=== PATIENT | male | born 1980 | race Caucasian/White ===

== ENCOUNTER 2020-09-29 19:26 | Emergency (ER) | payer MEDICAID ==
[2020-09-29] MEDS: Aspirin 81 MG Tab.Chew PO ONE (19:31)
[2020-09-29 19:48] LABS: PTT,PARTIAL THROMBOPLSTIN TIME 27.9 SEC (23.2-32.3)
[2020-09-29 19:52] LABS: CHLORIDE,CL 100 mEq/L (98-106); SODIUM,NA 138 mEq/L (136-145)
--- NOTE | 2020-09-29 20:26 | EDM.PDOC ---
ED HPI GENERAL MEDICAL PROBLEM - General Chief Complaint: Chest Pain Stated Complaint: L shoulder pain Time Seen by Provider: 09/29/20 19:40 Source of Information: Reports: Patient History Limitations: Reports: No Limitations - History of Present Illness INITIAL COMMENTS - FREE TEXT/NARRATIVE: Patient presents to ER with intermittent short episodes of pain in the left shoulder region. Patient states returned home from work today, had a warm bath and rode his exercise bike for 18 minutes at a fairly fast pace. Showered after and when he went to sit down, he noted his heart racing at around 176 bpm per his apple watch. He sat down to rest and again had issues with his heart rate in the 160s. He denies any short of breath with this. Does report a strange pulling sensation to his left shoulder that radiates to sternal area. Episodes only last 10-15 seconds. Relates then gets a warm sensation to his mouth, his mouth martinez and has a weird taste. Recently recovered from COVID, out of isolation on Sunday. Still having issues with diarrhea and loss os smell but is otherwise feeling good. This was the first day he had started exercising as of late. Does admit to also resuming his testosterone today. Also recently started Lexapro on Sunday for anxiety/depression Onset: Today, Sudden Duration: Minutes: Location: Reports: Chest Quality: Reports: Ache Severity: Moderate Improves with: Reports: Rest Associated Symptoms: Reports: Chest Pain, Diaphoresis, Nausea/Vomiting. Denies: Confusion, Cough, Fever/Chills, Headaches, Loss of Appetite, Malaise, Shortness of Breath Left Anterior Shoulder Pain Score (Numeric/FACES): 6 - Related Data Allergies Allergy/AdvReac Type Severity Reaction Status Date / Time No Known Allergies Allergy Verified 09/29/20 19:27 Home Meds: Home Meds Escitalopram [Lexapro] 10 mg PO DAILY 09/29/20 [History] Testosterone 120 mg PO DAILY 09/29/20 [History] Past Medical History Psychiatric History: Reports: Depression - Past Surgical History HEENT Surgical History: Reports: Other (See Below) Other HEENT Surgeries/Procedures: "middle ear malfunction" vertigo Social & Family History - Family History Family Medical History: No Pertinent Family History - Tobacco Use Tobacco Use Status *Q: Never Tobacco User - Caffeine Use Caffeine Use: Reports: None ED ROS GENERAL - Review of Systems Review Of Systems: See Below Constitutional: Denies: Fever, Chills, Malaise, Weakness HEENT: Reports: No Symptoms Respiratory: Denies: Shortness of Breath Cardiovascular: Reports: Chest Pain. Denies: Edema, Lightheadedness Endocrine: Reports: Fatigue GI/Abdominal: Reports: Diarrhea, Nausea. Denies: Abdominal Pain, Vomiting : Reports: No Symptoms Musculoskeletal: Reports: Shoulder Pain Skin: Reports: No Symptoms Neurological: Reports: No Symptoms ED EXAM, GENERAL - Physical Exam Exam: See Below Exam Limited By: No Limitations General Appearance: Alert, WD/WN, No Apparent Distress Ears: Normal External Exam, Normal TMs Nose: Normal Inspection, Normal Mucosa, No Blood Throat/Mouth: Normal Inspection, Normal Oropharynx Head: Normocephalic Neck: Normal Inspection, Supple, Non-Tender Respiratory/Chest: No Respiratory Distress, Lungs Clear, Normal Breath Sounds Cardiovascular: Regular Rate, Rhythm GI/Abdominal: Normal Bowel Sounds, Soft, Non-Tender Extremities: Normal Inspection, No Pedal Edema Neurological: Alert Skin Exam: Warm, Dry Course - Vital Signs Last Recorded V/S: Last Vital Signs Temp 97.2 F 09/29/20 19:27 Pulse 84 09/29/20 20:30 Resp 18 09/29/20 20:15 BP 133/89 09/29/20 20:30 Pulse Ox 98 09/29/20 20:30 - Orders/Labs/Meds Orders: Active Orders 24 hr Category Date Time Status CXR [Chest 2V] [CR] Stat Exams 09/29/20 19:31 Taken Labs: Laboratory Tests 09/29/20 09/29/20 09/29/20 Range/Units 19:35 19:35 19:35 WBC 13.3 H (5.0-10.0) 10^3/uL RBC 4.57 (4.50-6.00) 10^6/uL Hgb 14.4 (14.0-18.0) g/dL Hct 40.8 (40.0-54.0) % MCV 89.3 (82.0-94.0) fL MCH 31.5 (27.0-32.0) pg MCHC 35.3 (33.0-38.0) g/dL RDW Coeff of Genesis 12.3 (11.0-15.0) % Plt Count 251 (150-400) 10^3/uL Neut % (Auto) 58.2 (35-85) % Lymph % (Auto) 33.0 (10-55) % Tate % (Auto) 7.5 (0-16) % Eos % (Auto) 1.1 (0-5) % Baso % (Auto) 0.2 (0-3) % Neut # (Auto) 7.72 H (1.80-7.00) 10^3/uL Lymph # (Auto) 4.38 (1.00-4.80) 10^3/uL Tate # (Auto) 0.99 H (0.00-0.80) 10^3/uL Eos # (Auto) 0.14 (0.00-0.45) 10^3/uL Baso # (Auto) 0.03 10^3/uL PT 9.8 (9.7-12.3) SEC INR 0.97 (0.92-1.18) APTT 27.9 (23.2-32.3) SEC Sodium 138 (136-145) mEq/L Potassium 3.4 L D (3.5-5.0) mEq/L Chloride 100 (98-106) mEq/L Carbon Dioxide 27 (21-32) mmol/L BUN 22 H D (7-18) mg/dL Creatinine 1.3 (0.7-1.3) mg/dL Est Cr Clr Drug Dosing 117.47 mL/min Estimated GFR (MDRD) > 60 (>=60) mL/min Glucose 175 H D (75-99) mg/dL Calcium 8.6 (8.4-10.1) mg/dL Total Bilirubin 0.4 (0.0-1.0) mg/dL AST 17 (15-37) U/L ALT 57 (12-78) U/L Alkaline Phosphatase 84 (46-116) U/L Lactate Dehydrogenase 167 (100-190) U/L Creatine Kinase 121 (35-232) U/L Troponin I < 0.017 (0.00-0.06) ng/mL Total Protein 7.0 (6.4-8.2) g/dL Albumin 4.1 (3.4-5.0) g/dL Lipase 79 (73-393) U/L Meds: Medications Discontinued Medications Generic Name Dose Route Start Last Admin Trade Name Nini PRN Reason Stop Dose Admin Aspirin 324 mg 09/29/20 19:31 09/29/20 19:31 Aspirin PO 09/29/20 19:32 324 mg ONETIME ONE Administration - Re-Assessments/Exams Free Text/Narrative Re-Assessment/Exam: 09/29/20 Labs are all normal. EKG normal. Chest xray normal. Long discussion held with patient about current symptoms, plan. Will contact patient in am for arrangement for holter monitor. Avoid caffeine. REturn if any return of symptoms, chest pain or rapid heart rate. Departure - Departure Time of Disposition: 20:24 Disposition: Home, Self-Care 01 Condition: Good Clinical Impression: Atypical chest pain, Tachycardia with greater than 160 beats per minute Instructions: Nonspecific Chest Pain, Adult Forms: ED Department Discharge Additional Instructions: 1. Rest 2. Avoid caffeine 3. Call [phone] as would like to arrange for holter monitor in am 4. Continue current meds 5. Return if increased pulse that does not resolve with rest or if increasing chest pain Sepsis Event Note (ED) - Evaluation Sepsis Screening Result: No Definite Risk - Focused Exam Vital Signs: Vital Signs Temp Pulse Resp BP Pulse Ox 09/29/20 20:30 84 133/89 98 09/29/20 20:15 89 18 135/93 H 97 09/29/20 20:00 90 18 135/92 H 98 09/29/20 19:45 92 20 134/90 98 09/29/20 19:32 99 16 136/90 98 09/29/20 19:27 97.2 F 114 H 18 154/94 H 96 - My Orders Last 24 Hours: My Active Orders 09/29/20 19:31 CXR [Chest 2V] [CR] Stat - Assessment/Plan Last 24 Hours: My Active Orders 09/29/20 19:31 CXR [Chest 2V] [CR] Stat
== END 2020-09-29 20:33 | disposition home or self-care (01) ==
LOC: CC.ED 19:26
DX: R07.89 Other chest pain (principal); R00.0 Tachycardia, unspecified; R53.83 Other fatigue; R19.7 Diarrhea, unspecified; R11.0 Nausea; M25.512 Pain in left shoulder; F32.9 Major depressive disorder, single episode, unspecified; Z79.899 Other long term (current) drug therapy
CPT/HCPCS: 36415; 71046; 80053; 82550; 83615; 83690; 84484; 85025; 85610; 85730; 93005; 99285-25; A9270-GY